=== PATIENT | female | born 1975 | race Caucasian/White ===

== ENCOUNTER 2018-09-30 09:01 | Day surgery (SDC) | payer OTHER ==
[~2018-09-30] VITALS: Ht 172.7 cm; Wt 104.3 kg
[~2018-09-30 09:01] MED LIST: CHOL200059 PO; HYDR-2769 PO
[2018-09-30] MEDS ORDERED: IV RINGERS,LACTATED 1000ML 1,000 ML IV SCH (09:48)
[2018-09-30] MEDS ORDERED: PROCHLORPERAZINE 10 MG/2 ML VIAL. IV PRN (10:00)
[2018-09-30] MEDS ORDERED: LIDOCAINE 1% PF 2 ML VIAL. ID PRN (10:00)
[2018-09-30] MEDS ORDERED: MORPHINE SULFATE 2 MG/ML VIAL. IV PRN (10:00)
[2018-09-30] MEDS ORDERED: HYDROmorphone 2 MG/ML VIAL IV PRN (10:00)
[2018-09-30] MEDS ORDERED: fentaNYL PF VIAL 100 MCG/2 ML VIAL IV PRN ×2 (10:00)
[2018-09-30] MEDS ORDERED: ONDANSETRON PF 4 MG/2 ML VIAL. IV PRN (10:00)
[2018-09-30] MEDS ORDERED: LIDOCAINE 2% PF 5 ML VIAL. ONE (10:05)
[2018-09-30] MEDS ORDERED: PROPOFOL 20 ML IV ONE (10:05)
--- NOTE | 2018-09-30 11:26 | DISCH ---
DISCHARGE INSTRUCTIONS Condition on Discharge Condition on Discharge: Stable Activity After Discharge Activity Instructions for Disc: Other ROM activity Other activity instructions: ok to walk in CAM boot Weight Bearing Status after Di: As tolerated Wound Incision Care Wound/Incision Care: Ice to area for comfort Other wound/incision instructi: keep L ankle elevated when sitting or lying Contacting the DRAngela after DC Call your doctor for: Concerns you may have Follow-Up Follow up with: [facility] in 2 wks Treatment/Equipment after DC Adaptive Equipment Issued: None LESTER REEVES II, MD Sep 30, 2018 11:26
--- NOTE | 2018-09-30 11:28 | PDOC4 ---
Operative Note Operative Note Date of procedure: 09/30/2018 Surgeon: Guy Reeves Veneer Measurer: Peyton Nelson, certified histologic technician Preoperative diagnosis: Closed left distal fibula fracture Postoperative diagnosis: Same Procedure performed: Examination under anesthesia of left ankle fracture Anesthesia: Gen. with LMA Findings: No talar shift or widening noted with application of stress Blood loss: 0 Reason for procedure: Patient is a very pleasant 43-year-old female who suffered a twisting injury to her left ankle resulting in a distal fibular fracture. She was seen in emergency department sent to my clinic for definitive management. We discussed different options as far as figuring out stability of her ankle, she tells me she would not tolerating weightbearing secondary to her level of pain and therefore we elected to proceed with the above surgery. Description of procedure: Patient was greeted in the preoperative area by myself for the correct extremity was verified and marked. She was taken back to the operative suite and transferred gently supine to the OR table and secured the bed. She had successful induction of a general anesthetic. After adequate relaxation I took x-rays of her right ankle for comparison. I then proceeded to take stress x-rays of her normal ankle which demonstrated no widening or talar shift. She was then awakened from anesthesia and transferred gently supine to the recovery room cart and taken to PACU in a stable and extubated condition. Postoperative plan is discharge her home, she can weight-bear as tolerated in the cam boot. I will see her back in 2 weeks. GUY REEVES II, MD Sep 30, 2018 11:28
[2018-09-30] MEDS ORDERED: HYDROcodone/APAP 10/325 1 TAB TABLET PO ONE (11:45)
[2018-09-30 11:48] VITALS: BP 130/74
== END 2018-09-30 12:06 | disposition home or self-care (01) ==
LOC: SURG 09:01
PROVIDERS: ATTEND Orthopaedic Surgery Sports Medicine
DX: S82.62XA Displaced fracture of lateral malleolus of left fibula, initial encounter for closed fracture (principal); F32.9 Major depressive disorder, single episode, unspecified; Z90.710 Acquired absence of both cervix and uterus; Z98.890 Other specified postprocedural states; Z79.899 Other long term (current) drug therapy; W01.0XXA Fall on same level from slipping, tripping and stumbling without subsequent striking against object, initial encounter; Y93.89 Activity, other specified; Y92.096 Garden or yard of other non-institutional residence as the place of occurrence of the external cause; Y99.8 Other external cause status
CPT/HCPCS: 27860; 76000; A7015; J2001; J2704

== ENCOUNTER 2020-01-14 17:26 | Emergency (ER) | payer OTHER ==
[~2020-01-14] VITALS: Ht 172.7 cm; Wt 113.6 kg
--- NOTE | 2020-01-14 18:07 | PHYS DOC ---
Past Medical History Past Medical History: Bipolar Additional Past Medical Histor: Depression type (TWYLA CELAYA APRN) Past Surgical History: Hysterectomy, Tonsillectomy, Other Additional Past Surgical Histo: ABD, ACL repairs, R. arm, B. Breast implant, D&C, Lasic (TWYLA CELAYA APRN) Smoking Status: Current Some Day Smoker Additional Information: Couple x's/week. Alcohol Use: Occasionally (TWYLA CELAYA APRN) Attending Signature I have participated in the care of this patient and I have reviewed and agree with all pertinent clinical information above including history, exam, and recommendations. (JOHNATHAN KENDALL MD) General Adult EDM: Chief Complaint: ANKLE PROBLEM HPI: HPI: Patient is a 44 year old female who presents to the emergency department by ambulance for right ankle pain. Patient reports that she turned to talk to somebody and fell off a 1 foot all step. She denies hitting her head, loss of consciousness, she denies taking any blood thinners. She denies headache, nausea, vomiting, dizziness. She is complaining of right ankle pain that she rates 5 out of 10, there is no radiation of pain, it is worse with movement. Prior to arrival EMS stabilized her ankle with a pillow and gave her 100 mics of fentanyl and 5 mg of Versed IV. She is also reporting mild left knee and foot pain. She has abrasions to her left anterior knee and to the dorsal aspect of her left foot. (TWYLA CELAYA APRN) Review of Systems: Review of Systems: Constitutional: Denies fever or chills. [] GI: Denies abdominal pain, nausea, vomiting, or diarrhea. [] Musculoskeletal: See HPI Integument: See HPI Neurologic: Denies headache, focal weakness or sensory changes. [] Psychiatric: Denies depression or anxiety. [] Complete review of systems is negative unless otherwise documented in the HPI. (TWYLA CELAYA APRN) Heart Score: Risk Factors: Risk Factors: DM, Current or recent (<one month) smoker, HTN, HLP, family history of CAD, obesity. Risk Scores: Score 0 - 3: 2.5% MACE over next 6 weeks - Discharge Home Score 4 - 6: 20.3% MACE over next 6 weeks - Admit for Clinical Observation Score 7 - 10: 72.7% MACE over next 6 weeks - Early Invasive Strategies (TWYLA CELAYA APRN) Allergies: Allergies: Allergies Coded Allergies Type Severity Reaction Last Updated Verified No Known Drug Allergies 09/30/18 No (TWYLA CELAYA APRN) Physical Exam: PE: Constitutional: Well developed, well nourished, no acute distress, non-toxic appearance, obese, tearful. [] HENT: Normocephalic, atraumatic, bilateral external ears normal, nose normal. [] Eyes: PERRLA, EOMI, conjunctiva normal, no discharge. [] Neck: Normal range of motion, no stridor. [] Cardiovascular:Heart rate regular rhythm Lungs & Thorax: Respirations even and unlabored, no retractions, no respiratory distress Skin: Warm, dry, no rash, patient has abrasions to left anterior knee and left dorsal aspect of foot. [] Extremities: No cyanosis; R. ankle: Tenderness to palpation medially and laterally with possible deformity, 2+ edema R. ankle, 2+ pedal pulse, cap refill less than 3 second, sensation intact, warm extremity, patient is able to move all 5 toes on R. foot, decreased ROM of ankle [] Neurologic: Alert and oriented X 3, no focal deficits noted. [] Psychologic: Affect normal, judgement normal, mood normal. [] (TWYLA CELAYA APRN) EKG: EKG: [] (TWYLA CELAYA APRN) Radiology/Procedures: Radiology/Procedures: PROCEDURE: ANKLE RIGHT 3V EXAM: AP, oblique and lateral views of the right ankle DATE: 01/14/2020 5:46 PM INDICATION: Right ankle pain after fall COMPARISON: No Prior FINDINGS/ IMPRESSION: 1. There is a comminuted fracture of the distal fibular shaft. There is a transverse fracture through the base of the medial malleolus. In addition there is a mildly displaced fracture of the posterior malleolus with approximately 4 mm depression of the articular surface. 2. Moderate associated soft tissue swelling is seen. [] (TWYLA CELAYA APRN) Course & Med Decision Making: Course & Med Decision Making Pertinent Labs and Imaging studies reviewed. (See chart for details) 0-spoke with Dr. Reeves, will put patient in a stirrup splint with heavy padding, without stockinette as requested. Will prescribe patient hydrocodone and have her follow-up with him in the office next . [] (TWYLA CELAYA APRN) Harleen Disclaimer: Harleen Disclaimer: This electronic medical record was generated, in whole or in part, using a voice recognition dictation system. (TWYLA CELAYA APRN) Departure Departure Impression: Primary Impression: Trimalleolar fracture of ankle, closed Qualified Codes: S82.852A - Displaced trimalleolar fracture of left lower leg, initial encounter for closed fracture Disposition: HOME, SELF-CARE Condition: STABLE Referrals: ALANIS DAWSON MD (PCP) LESTER REEVES II, MD Patient Instructions: Ankle Fracture, [id number] Additional Instructions: Fill prescription(s) and use as directed. Recommend application of ice, elevation, and rest of affected extremity. Wear the splint that was placed until follow up appointment with Dr. Reeves next , call to schedule your appointment. Return to the ER if your symptoms worsen. Scripts Hydrocodone Bit/Acetaminophen (HYDROCODONE-APAP 5-325 ) 1 Tab Tablet 1 TAB PO PRN Q6HRS PRN for PAIN for 5 Days, #20 TAB 0 Refills Prov: TWYLA CELAYA APRN 01/14/20 Justicifation of Admission Dx: Justifications for Admission: Justification of Admission Dx: N/A (TWYLA CELAYA APRN) Splinting Splinting : Location: Right lower extremity Hand-Made Type: orthoglass Splint: sugar-tong (Stirrup splint) Pre-Proc Neuro Vasc Exam: normal Post-Proc Neuro Vasc Exam: normal, unchanged from pre-exam (TWYLA CELAYA APRN) TWYLA CELAYA APRN Jan 14, 2020 18:07 JOHNATHAN KENDALL MD Jan 15, 2020 03:33
[2020-01-14] MEDS ORDERED: HYDROcodone/APAP 5/325MG 1 TAB TABLET PO ONE (18:30)
--- NOTE | 2020-01-14 18:33 | RAD ---
EXAM: AP, oblique and lateral views of the right ankle DATE: 01/14/2020 5:46 PM INDICATION: Right ankle pain after fall COMPARISON: No Prior FINDINGS/ IMPRESSION: 1. There is a comminuted fracture of the distal fibular shaft. There is a transverse fracture through the base of the medial malleolus. In addition there is a mildly displaced fracture of the posterior malleolus with approximately 4 mm depression of the articular surface. 2. Moderate associated soft tissue swelling is seen. Electronically signed by: Bret Harvey MD (01/14/2020 6:30 PM) JESSICA
--- NOTE | 2020-01-14 19:35 | RAD ---
Exam: Right foot 2 views INDICATION: Pain after fall TECHNIQUE: Frontal and lateral views the right foot Comparisons: None FINDINGS: Bone mineralization is normal. Redemonstration of partially visualized trimalleolar fracture. No other fracture is seen. Joint spaces are well-maintained. Soft tissue swelling surrounding the ankle. IMPRESSION: No fracture identified at the foot. Partially visualized heart malleolus fracture again noted. Electronically signed by: Silvana Olson MD (01/14/2020 7:32 PM) [id number]
[2020-01-14] MEDS ORDERED: HYDR-2761 PO (20:15)
[2020-01-14 20:25] VITALS: BP 126/69
== END 2020-01-14 20:25 | disposition home or self-care (01) ==
LOC: ER 17:26
DX: S82.851A Displaced trimalleolar fracture of right lower leg, initial encounter for closed fracture (principal); S82.831A Other fracture of upper and lower end of right fibula, initial encounter for closed fracture; F31.9 Bipolar disorder, unspecified; F17.200 Nicotine dependence, unspecified, uncomplicated; W10.8XXA Fall (on) (from) other stairs and steps, initial encounter; Y93.89 Activity, other specified; Y92.89 Other specified places as the place of occurrence of the external cause; Y99.8 Other external cause status
CPT/HCPCS: 29515; 73610; 73620; 99285-25